=== PATIENT | female | born 2000 | race Caucasian/White ===

== ENCOUNTER 2019-05-26 18:18 | Emergency (ER) | payer BC, SELFPAY | END 2019-05-26 21:10 | disposition home or self-care (01) | PROVIDERS: Emergency Provider Emergency Medicine; Visit Provider Emergency Medicine | DX: R10.11 Right upper quadrant pain (principal) ==

== ENCOUNTER 2019-07-10 09:11 | Outpatient (CLI) | payer BC, SELFPAY ==
--- NOTE | 2019-07-10 09:29 | NM_ITS ---
WS: [id number] NUCLEAR MEDICINE HIDA SCAN WITH GALLBLADDER EJECTION FRACTION HISTORY: ABDOMINAL PAIN COMPARISON: Gallbladder ultrasound 05/26/2019 TECHNIQUE: The patient was intravenously injected with 7.9 mCi of TC99m Mebrofenin. Immediate imaging over the right upper quadrant was followed by 5 minute image and additional images for a total of 60 minutes. Normal uptake of radiotracer throughout the liver. Activity identified in the gallbladder at 15 minutes and well distended by 60 minutes. Activity in the proximal small bowel was seen by 15 minutes. Good washout of the radiotracer from the liver by 60 minutes. The patient then drank 8 ounces of Ensure Plus. Ejection fraction at 60 minutes was 79%. Normal GB ej ection fraction is 35-75%. Post fatty meal symptoms: None. NM/NM hepatobiliary w phar* [id number] IMPRESSION: 1. Normal HIDA scan. 2. Normal gallbladder ejection fraction.
== END 2019-07-10 09:12 | disposition home or self-care (01) ==
LOC: RAD 09:18
PROVIDERS: PCP Nurse Practitioner Family; Visit Provider Surgery
DX: R10.9 Unspecified abdominal pain (principal)
CPT/HCPCS: 78227; A9537

== ENCOUNTER → 2019-07-23 12:57 | Outpatient (BNVA) | payer BC, SELFPAY | PROVIDERS: PCP Nurse Practitioner Family; Visit Provider Nurse Practitioner Family | DX: F41.9 Anxiety disorder, unspecified (principal); R50.9 Fever, unspecified; J01.10 Acute frontal sinusitis, unspecified; J02.9 Acute pharyngitis, unspecified | CPT/HCPCS: 87804 ==

== ENCOUNTER 2020-05-15 07:20 | Outpatient (CLI) | payer BC, SELFPAY ==
--- NOTE | 2020-05-15 07:24 | US_ITS ---
WS: [id number] TRANSABDOMINAL PELVIC AND TRANSVAGINAL PELVIC ULTRASOUND HISTORY: UNSPECIFIED DYSPAREUNIA COMPARISON: None available. Uterus: 7.5 cm x 3.8 cm x 3.5 cm. Normal size anteverted. No fibroid or mass. Endometrium: 0.2 cm. Thin endometrium. No abnormality. Right ovary: 2.2 cm x 2.2 cm x 2.2 cm. Normal size and echogenicity and vascularity. No mass. Left ovary: 1.6 cm x 0.6 cm x 1.4 cm. Normal size and echogenicity. No mass. Small amount of free fluid. US/US pelvic with transvaginal IMPRESSION: Normal pelvic ultrasound.
== END 2020-05-15 07:21 | disposition home or self-care (01) ==
PROVIDERS: PCP Nurse Practitioner Family; Visit Provider Nurse Practitioner Family
DX: N94.10 Unspecified dyspareunia (principal)
CPT/HCPCS: 76830; 76856

== ENCOUNTER → 2020-07-10 10:30 | Outpatient (BNVA) | payer BC, SELFPAY | PROVIDERS: PCP Nurse Practitioner Family; Visit Provider Nurse Practitioner Women's Health | DX: N72 Inflammatory disease of cervix uteri (principal); N89.8 Other specified noninflammatory disorders of vagina; N92.1 Excessive and frequent menstruation with irregular cycle; B96.89 Other specified bacterial agents as the cause of diseases classified elsewhere; Z11.3 Encounter for screening for infections with a predominantly sexual mode of transmission | CPT/HCPCS: 87491; 87591; 87661 ==

== ENCOUNTER → 2020-08-27 10:21 | Outpatient (BNVA) | payer BC, SELFPAY | PROVIDERS: PCP Nurse Practitioner Family; Visit Provider Nurse Practitioner Family | DX: N92.6 Irregular menstruation, unspecified (principal); Z32.00 Encounter for pregnancy test, result unknown | CPT/HCPCS: 81025 ==

== ENCOUNTER → 2021-01-12 10:03 | Outpatient (BNVA) | payer BC, MEDICAID, SELFPAY | PROVIDERS: PCP Nurse Practitioner Family; Visit Provider Nurse Practitioner Family | DX: R05 Cough (principal); Z20.822 Contact with and (suspected) exposure to COVID-19 | CPT/HCPCS: 87635 ==

== ENCOUNTER 2021-03-26 21:20 | Outpatient (CLI) | payer MEDICAID, SELFPAY ==
[2021-03-26 21:30] VITALS: RESP 16
[2021-03-26 21:34] VITALS: BP 138/97; PULSE 80
[2021-03-26 21:46] VITALS: BMI 32.5
[2021-03-26 21:49] VITALS: BP 137/85; PULSE 81
[2021-03-26] MEDS: acetaminophen 500 mg Tablet 1000 MG PO (21:53)
[2021-03-26 22:00] LABS: Urine Creatinine 24 mg/dL (28-217); Urine Protein Random 5 mg/dL
[2021-03-26 22:04] VITALS: BP 133/82; PULSE 76
[2021-03-26 22:10] LABS: UPRO/UCREAT Ratio 0.21 mg/mg CR
[2021-03-26 22:12] VITALS: BP 145/89; PULSE 76
== END 2021-03-26 22:20 | disposition home or self-care (01) ==
LOC: OPOB 21:24 → OBGYN 21:24
PROVIDERS: PCP Nurse Practitioner Family; Visit Provider Family Medicine
DX: O16.9 Unspecified maternal hypertension, unspecified trimester (principal); O99.891 Other specified diseases and conditions complicating pregnancy; R51.9 Headache, unspecified; M54.2 Cervicalgia; M25.519 Pain in unspecified shoulder
CPT/HCPCS: 59025; 82570; 84156; 99211

== ENCOUNTER 2021-04-01 11:20 | Outpatient (CLI) | payer MEDICAID, SELFPAY ==
[2021-04-01] VITALS (11 sets, daily range): BP systolic 131–144; BP diastolic 86–95; PULSE 68–80; RESP 18; TEMP 36.6; BMI 32.3
[2021-04-01 12:27] LABS: Basophils % 0.2 %; Eosinophils # 0.1 10^3/uL (0.0-0.8); Eosinophils % 1.4 %; Hematocrit 37.2 % (37.0-47.0); Hemoglobin 13.1 g/dL (11.5-15.3); Lymphocytes % 24.6 %; Mean Corpuscular HGB Conc 35.2 g/dL (30.0-36.0); Mean Corpuscular Hemoglobin 33.7 pg (28.0-34.0); Mean Corpuscular Volume 95.6 fl (81-99); Mean Platelet Volume 12.3 fL (7.4-10.4); Monocytes # 0.4 10^3/uL (0.2-0.9); Monocytes % 4.9 %; Neutrophils # 5.52 10^3/uL (1.8-7.7); Neutrophils % 68.7 %; Nucleated Red Blood Cells % 0 %; Platelet Count 137 10^3/cmm (130-400); Red Blood Count 3.89 10^6/uL (4.1-5.3); Red Cell Distribution Width 13.7 % (12.1-15.1)
[2021-04-01 12:54] LABS: Alanine Aminotransferase 13 U/L (0-33); Albumin Level 3.7 g/dL (3.5-5.2); Alkaline Phosphatase 140 IU/L (35-105); Anion Gap 16.3 (5-19); Aspartate Amino Transferase 16 U/L (0-32); Blood Urea Nitrogen 7 mg/dL (6-20); Carbon Dioxide 20 mmol/L (22-29); Chloride 105 mmol/L (98-107); Globulin 1.7 g/dL (1.3-4.6); Glomerular Filtration Rate 278.2 mL/min (90-130); Glucose 63 mg/dL (65-115); Osmolality Calculated 280 mOsm/kg (285-295); Potassium 4.3 mmol/L (3.5-5.1); Sodium 137 mmol/L (136-145); Total Bilirubin 0.4 mg/dL (0.15-1.2); Total Protein 5.4 g/dL (6.6-8.7); Uric Acid 5.3 mg/dL (2.4-5.7); Urine Appearance Hazy (CLEAR); Urine Color Straw (Yellow)
[2021-04-01 12:55] LABS: Bilirubin Urine Neg (Negative); Blood Urine Neg (Negative); Glucose Urine UA Norm (Normal); Ketones Urine Negative (Negative); Leukocyte Esterase Urine Negative (Negative); Nitrate Urine Negative (Negative); Protein Urine Neg (Negative); Specific Gravity, Urine 1.005 (1.005-1.030); Urobilinogen Urine Norm (Negative); pH Urine 7 (5-7)
[2021-04-01 13:30] LABS: UPRO/UCREAT Ratio 0.13 mg/mg CR; Urine Creatinine 30 mg/dL (28-217); Urine Protein Random 4 mg/dL
[2021-04-01 13:32] LABS: Add Urine Culture? No; Bacteria Urine TRACE /hpf; RBC Urine 0-4 /hpf (0-2); Squamous Epithelial Cell Urine 25-40 /hpf (0-5); WBC Urine 0-4 /hpf (0-5)
--- NOTE | 2021-04-01 13:50 | PC.NURSE ---
PT CONCERNED EARLIER THAT CUFF MIGHT NOT BE RIGHT, THAT SHE HAS NURSE FRIENDS THAT SAY MANUAL CUFFS WERE BETTER, TOLD HER THAT THE CUFF WAS PROPER SIZE BUT JUST TO DOUBLE CHECK, BLOOD PRESSURE DONE WITH MANUAL CUFF PRIOR TO DISCHARGE, 144/92 WITH MANUAL AND 136/92 WITH OUR MACHINE.
== END 2021-04-01 13:50 | disposition home or self-care (01) ==
LOC: OPOB 11:30 → OBGYN 11:31
PROVIDERS: PCP Nurse Practitioner Family; Visit Provider Family Medicine
DX: O16.9 Unspecified maternal hypertension, unspecified trimester (principal)
CPT/HCPCS: 36415; 59025; 80053; 81001; 82570; 84156; 84550; 85025; 99211

== ENCOUNTER 2021-04-06 12:49 | Outpatient (CLI) | payer BC, MEDICAID, SELFPAY ==
[2021-04-06] VITALS (17 sets, daily range): BP systolic 121–168; BP diastolic 69–106; PULSE 71–94; RESP 18; TEMP 36–36.5; BMI 32.5
[2021-04-06 14:53] LABS: Add Urine Microscopic? NO; Charge for UA Resulting for Rev
[2021-04-06 14:57] LABS: Blood Urine Neg (Negative); Glucose Urine UA Norm (Normal); Ketones Urine Negative (Negative); Nitrate Urine Negative (Negative); Protein Urine Neg (Negative); Specific Gravity, Urine 1.015 (1.005-1.030); Urine Appearance Clear (CLEAR); Urine Color Yellow (Yellow); pH Urine 6 (5-7)
[2021-04-06 14:58] LABS: Bilirubin Urine Neg (Negative); Leukocyte Esterase Urine Negative (Negative); Urobilinogen Urine Norm (Negative)
[2021-04-06 15:26] LABS: Urine Creatinine 57 mg/dL (28-217); Urine Protein Random 6 mg/dL
[2021-04-06 15:31] LABS: UPRO/UCREAT Ratio 0.11 mg/mg CR
== END 2021-04-06 16:20 | disposition home or self-care (01) ==
LOC: OPOB 12:51 → OBGYN 12:52
PROVIDERS: PCP Nurse Practitioner Family; Visit Provider Family Medicine
DX: O16.9 Unspecified maternal hypertension, unspecified trimester (principal)
CPT/HCPCS: 59025; 81003; 82570; 84156; 99211

== ENCOUNTER 2021-04-07 19:15 | Inpatient (IN) | payer MEDICAID, SELFPAY ==
[2021-04-07] VITALS (8 sets, daily range): BP systolic 123–149; BP diastolic 74–96; PULSE 65–84; RESP 15; TEMP 36.3–36.5; BMI 32.7
[2021-04-07] MEDS: miSOPROStol 100 mcg tablet 25 MCG VAGINAL (20:30)
[2021-04-07 20:53] LABS: Basophils % 0.3 %; Eosinophils # 0.1 10^3/uL (0.0-0.8); Eosinophils % 1.3 %; Hematocrit 35.7 % (37.0-47.0); Hemoglobin 12.5 g/dL (11.5-15.3); Lymphocytes # 2.5 10^3/uL (0.8-4.8); Lymphocytes % 24.1 %; Mean Corpuscular Hemoglobin 33.4 pg (28.0-34.0); Mean Corpuscular Volume 95.5 fl (81-99); Mean Platelet Volume 12.5 fL (7.4-10.4); Monocytes # 0.6 10^3/uL (0.2-0.9); Monocytes % 5.5 %; Neutrophils # 7.04 10^3/uL (1.8-7.7); Neutrophils % 68.5 %; Nucleated Red Blood Cells % 0 %; Platelet Count 163 10^3/cmm (130-400); Red Blood Count 3.74 10^6/uL (4.1-5.3); Red Cell Distribution Width 13.3 % (12.1-15.1); White Blood Count 10.3 10^3/uL (4.0-10.0)
[2021-04-07] MEDS: morphine 4 mg/mL SDV 1 mL 8 MG IM (23:12)
[2021-04-07] MEDS: promethazine 25 mg/mL SDV 1 mL IM (23:13)
[2021-04-08] VITALS (63 sets, daily range): BP systolic 121–177; BP diastolic 66–105; PULSE 55–111; RESP 16–20; TEMP 36.6–37.5; O2SAT 95–100
[2021-04-08] MEDS: miSOPROStol 100 mcg tablet 25 MCG VAGINAL ×2 (00:39→04:50)
--- NOTE | 2021-04-08 07:09 | PM.OPHPUD ---
Labor & Delivery H&P Update Date of Procedure: April 08, 2021 Date H&P Performed: 04/07/21 H&P update information: I have reviewed H&P completed within last 30 days, I have examined patient prior to procedure, No changes to prior documentation and H&P to be scanned into chart Admission Diagnosis: 38-week 1 female with gestational hypertension presenting for induction Preop diagnosis: Same as admission diagnosis Planned procedure: Anticipate spontaneous vaginal delivery Related Problem List Diagnoses (1) 38 weeks gestation of : (2) Gestational hypertension:
[2021-04-08] MEDS: lactated ringers 1,000 ML 999 ML IV (11:10)
[2021-04-08] MEDS: fentaNYL 50 mcg/mL INJ 2mL IVP (11:50)
[2021-04-08] MEDS: dextrose 5%-lactated ringers 1,000 ML 999 ML IV (12:20)
--- NOTE | 2021-04-08 13:17 | P.ANESASSM_ITS ---
Pre-Anesthetic Assessment Pre-Anesthetic Assessment: Height/Weight: Height 1.57 m Weight 81.193 kg Temp Pulse Resp BP Pulse Ox 98.6 F 87 20 H 140/85 100 04/08/21 11:20 04/08/21 13:15 04/08/21 11:50 04/08/21 13:15 04/08/21 13:11 Preop Diagnosis: Same as admission diagnosis Was Beta Nazario taken within 24 hours: N/A Was Clonidine taken within 24 hours: N/A Exam: Pre-Anes Outpt Exam: alert, oriented x 3, clear to auscultation bilaterally and regular rate & rhythm Airway: Submandibular: WNL Cervical ROM: WNL MP: 2 History/ROS: No significant complaints Anesthetic Plan: ASA status: 2 Anesthesia: Anesthesia Evaluation and Regional (specify below) Other: Labor epidural Risk of > 500 ml blood loss (7ml/kg in children): No Meds/Allergies Current Medications: Current Medications Generic Name Dose Route Start Last Admin Trade Name Freq PRN Reason Stop Dose Admin Fentanyl 25 - 100 mcg 04/07/21 19:54 04/08/21 11:50 Fentanyl 50 Mcg/ Ml Inj 2ml IVP 25 mcg Q1H PRN Administration SEVERE PAIN Dextrose/Lactated Ringer's 1,000 mls @ 125 m ls/hr 04/07/21 19:54 04/08/21 12:20 Dextrose 5%-Lact ated Ringers IV 999 mls/hr .Q8H PRN Administration per label comment s Lactated Ringer's 1,000 mls @ 999 m ls/hr 04/08/21 10:02 04/08/21 12:20 Lactated Ringers IV Infused .Q1H1M PRN Infusion See label comment s PFSH Anesthesia PFSH: Medical History Anxiety Depression No pertinent past medical history neghx: htn,dm,thyroid,dvt/pe PCP: [facility] Surgical History No pertinent past surgical history Family History Grandfather Hypercholesteremia Maternal Diabetes Maternal Mother Hypertension Grandmother Thyroid disease Maternal Denies family history of Colon cancer Ovarian cancer Heart disease Breast cancer Uterine cancer Stroke Female Reproductive History: : 1 Data Anesthesia CBC & Chem 7: 04/07/21 20:20 Other Labs: Laboratory Results - last 48 hr 04/07/21 20:20 WBC 10.3 H RBC 3.74 L Hgb 12.5 Hct 35.7 L MCV 95.5 MCH 33.4 MCHC 35.0 RDW 13.3 Plt Count 163 MPV 12.5 H Neut % (Auto) 68.5 Lymph % (Auto) 24.1 [place] % (Auto) 5.5 Eos % (Auto) 1.3 Baso % (Auto) 0.3 Neut # (Auto) 7.04 Lymph # (Auto) 2.5 [place] # (Auto) 0.6 Eos # (Auto) 0.1 Baso # (Auto) 0.0 Nucleated RBC % (auto) 0 Nucleated RBCs # 0.0 Cardiac Studies: No Data to Display
--- NOTE | 2021-04-08 13:18 | ANES.PROC ---
Anesthesia Procedures Procedure/Date: 04/08/21 Epidural: Time Out Performed: Yes Consents Signed: Procedure Consent Consent: requested by attending/covering physician, from patient, risks and benefits reviewed and patient agrees to proceed Lumbar Level: L3-L4 Epidural position: sitting Epidural procedure: sterile prep of area, 1% lidocaine to numb the area, 18 g needle, neg for paresthesia, test dose given, 1.5% xylocaine 1:200k epi, 0.2% Ropivacaine bolus ml, placed PCEA, no systemic response, sterile dressing applied and 0.2% Ropiavacaine @ mls/hr Additional Comments: LORTF @ 5 cm, catheter advanced easily, secured @ 11 cm. 200 mcg Fentanyl added to 100 mL Ropivacaine infusion bag = 2 mcg/mL Fentanyl.
[2021-04-08] MEDS: dextrose 5%-lactated ringers 1,000 ML 125 ML IV (18:13)
--- NOTE | 2021-04-08 19:13 | PM.DELIVERY ---
Delivery Note: Date of delivery: April 08, 2021 Pre-delivery diagnoses: 20-year-old 1 at 38 weeks estimated gestational age with gestational hypertension Post-delivery diagnoses: Status post spontaneous vaginal delivery. Procedure: Spontaneous vaginal delivery Op report anesthesia: Epidural Delivering Physician: Roldan Hunter Estimated blood loss (mL): 150 Pre-Delivery Course: The patient had had multiple blood pressures which had been elevated intermittently with blood pressures that were within normal limits. Because it was a recurrent pattern, I elected to induce the patient. She had no other signs or symptoms of preeclampsia. Her preeclamptic panel was within normal limits. The patient presented to the hospital the night prior to delivery. She was placed on Cytotec 25 mcg per vagina x3. An amniotomy was performed. An epidural was placed. She then progressed to complete without difficulty. She was allowed to labor down for about 2 hours. Her had been relatively unremarkable. Her blood type is a positive. Her antibody screen is negative. She was GBS negative. Her glucose screen was negative. The remainder of her labs were within normal limits. Delivery: DELIVERY: The patient progressed to complete without difficulty. She delivered a male with a weight of 7 pounds 12 ounces with Apgars of 4, 9. The baby was delivered from the COSME position and placed on the mother's abdomen. The cord was then clamped and cut immediately since the baby appeared to be stunned.. There was a nuchal cord x1 which the baby was delivered through because it could not be reduced over his head.. There was no meconium until after the delivery. The placenta and 3 vessel cord were delivered intact shortly thereafter. The perineum and vaginal vault were carefully examined. A first-degree posterior and anterior midline laceration were noted which were not bleeding.. Both the mother and the baby were in stable condition. Post-Delivery Status: Good History History History 0 Term Miscarriages/Ectopic Living Children A&P Assessment and plan (1) 38 weeks gestation of : Status: Acute (2) Gestational hypertension: Status: Acute Coding Level of Care Code Acute Pattern Room Attendant for Chg Fwd Diagnoses 38 weeks gestation of Z3A.38 Gestational hypertension O13.9
[2021-04-08] MEDS: ibuprofen 800 mg tablet PO (20:48)
[2021-04-09] VITALS (7 sets, daily range): BP systolic 124–145; BP diastolic 71–90; PULSE 65–74; RESP 16; TEMP 36.7
[2021-04-09] MEDS: docusate sodium 100 mg Capsule PO ×2 (08:15→19:26)
[2021-04-09] MEDS: prenatal vitamin Capsule 1 CAP PO (08:15)
[2021-04-09] MEDS: ibuprofen 800 mg tablet PO ×3 (08:16→21:11)
[2021-04-09 09:43] LABS: Hematocrit 34.2 % (37.0-47.0); Hemoglobin 11.9 g/dL (11.5-15.3); Mean Corpuscular HGB Conc 34.8 g/dL (30.0-36.0); Mean Corpuscular Hemoglobin 33.5 pg (28.0-34.0); Mean Corpuscular Volume 96.3 fl (81-99); Platelet Count 129 10^3/cmm (130-400); Red Blood Count 3.55 10^6/uL (4.1-5.3); Red Cell Distribution Width 13.2 % (12.1-15.1); White Blood Count 13.5 10^3/uL (4.0-10.0)
--- NOTE | 2021-04-09 17:52 | P.DS_ITS ---
Discharge Providers ENROLLMENT NURSE Date of Admission: 04/07/21 19:15 Date of Discharge: 04/09/21 Attending Provider at Admission: Roldan Hunter MD Attending Provider at Discharge: Roldan Hunter MD Primary Care Provider: BALDEMAR Garcia Diagnoses at Discharge Discharge Diagnosis (1) 38 weeks gestation of : Status: Acute (2) Gestational hypertension: Status: Acute Reason for Visit Reason for Visit: Induction Hospital Course Hospital Course The patient presented to the estimated gestational age due to gestational hypertension. She was placed on Cytotec x3. An amniotomy was performed. An epidural was placed. She progressed to complete and had an unremarkable delivery of a healthy appearing infant. She had minor lacerations. Her course was unremarkable. Her bleeding was within normal limits. Her pain was well controlled. She had some challenges with breast-feeding, and is currently still on the fence as to whether she will breast-feed or not. Otherwise her hospital stay was unremarkable. Information Peripartum Data: Infant Delivery Method: Vaginal Physical Exam Narrative: EXAM NARRATIVE: The patient is alert. She appears comfortable. Her heart has a regular rate and rhythm with no murmurs appreciated. Lungs are clear to auscultation bilaterally. Her fundus is firm and below the umbilicus. Urinary Catheter Management^: [place]: Cath Placed During This Visit: yes Urinary Catheter Date of Insertion: 04/08/21 Urinary Catheter Time of Insertion: 13:15 History History History 0 Term Miscarriages/Ectopic Living Children Discharge Data Data Completed and Pending: Labs from last 24 hours 04/09/21 09:28 WBC 13.5 H RBC 3.55 L Hgb 11.9 Hct 34.2 L MCV 96.3 MCH 33.5 MCHC 34.8 RDW 13.2 Plt Count 129 L MPV 12.0 H Vitals: Last Vital Signs Temp 98.1 F 04/08/21 18:43 Pulse 74 04/09/21 12:29 Resp 16 04/08/21 20:05 BP 124/71 04/09/21 12:29 Pulse Ox 100 04/08/21 13:21 Discharge Plan Discharge Patient Disposition: Home Condition: Stable Prescriptions: New ibuprofen 800 mg Tablet 800 mg PO TID Qty: 45 RF: 0 Continued Classic 28 mg iron- 800 mcg tablet 1 tab PO DAILY Qty: 90 RF: 1 cetirizine 5 mg Tablet 5 mg PO PRN RF: 0 calcium phos,dibas-vitamin D3 77-400 mg-unit Tablet 1 tab PO DAILY RF: 0 Discontinued Vitamin C 25 mg Tablet 25 mg PO PRN RF: 0 Discharge Orders: Discharge Order (Routine); Ordered 04/09/21 Ordered By: Roldan Hunter Referrals: Roldan Hunter MD [Physician] - 6 Weeks Discharge Diet: Usual diet Discharge Activity: Limit activity as instructed Patient Instructions: Depression (DC), Expression, Collection and Storage of Breast Milk (DC), Bleeding (DC), Preeclampsia and Eclampsia After Delivery (GEN), OB Discharge Report, OB Food/Drug Interaction Guide, Opioid Safety, OB Home Care, OB Vaginal Deliveries - [facility] Discharge Attestations ENROLLMENT NURSE Time Spent in Discharge Care*: less than 30 min Coding Level of Care Code Acute Robotype Operator for Chg Fwd Diagnoses 38 weeks gestation of Z3A.38 Gestational hypertension O13.9
[2021-04-09] MEDS: benzocaine-menthol 78 gm Canister 1 SPRAY TOPICAL (19:28)
--- NOTE | 2021-04-12 10:30 | ANE.PACU2 ---
Inpatient post-anesthesia follow up: Airway intact: Yes Vital signs: Temperature 98.1 F Pulse Rate 65 Respiratory Rate 16 Blood Pressure 145/85 Pulse Oximetry 100 Oxygen Delivery Me thod Room Air Oxygen Flow Rate Fraction of Inspir ed Oxygen Hydration adequate: Yes Nausea and vomiting: No Pain level: 2 Mental status: Baseline
== END 2021-04-09 21:48 | disposition home or self-care (01) | DRG 807 ==
LOC: OPOB 19:16 → OBGYN 19:16
PROVIDERS: Admitting Provider Family Medicine; PCP Nurse Practitioner Family; Visit Provider Family Medicine
DX: O13.4 Gestational [pregnancy-induced] hypertension without significant proteinuria, complicating childbirth (principal); Z37.0 Single live birth; Z3A.38 38 weeks gestation of pregnancy; O69.2XX0 Labor and delivery complicated by other cord entanglement, with compression, not applicable or unspecified
CPT/HCPCS: 12345; 36415; 51702; 59409; 85025; 85027; 96372; 98960; J2270; J2550; J2795; J3010

== ENCOUNTER → 2021-04-19 09:47 | Outpatient (BNVA) | payer MEDICAID, SELFPAY | PROVIDERS: PCP Nurse Practitioner Family; Visit Provider Nurse Practitioner Family | DX: Z01.84 Encounter for antibody response examination (principal) | CPT/HCPCS: 86580; 86787 ==

== ENCOUNTER → 2022-11-09 09:53 | Outpatient (BNVA) | payer MEDICAID, SELFPAY | PROVIDERS: PCP Nurse Practitioner Family; Visit Provider Nurse Practitioner Family | DX: Z77.21 Contact with and (suspected) exposure to potentially hazardous body fluids (principal) | CPT/HCPCS: 81025; 82977; 83615; 84450; 84460; 85025; 86803; 87340; 87806 ==

== ENCOUNTER → 2023-04-28 10:13 | Outpatient (BNVA) | payer MEDICAID, SELFPAY | PROVIDERS: PCP Nurse Practitioner Family; Visit Provider Nurse Practitioner Family | DX: N92.1 Excessive and frequent menstruation with irregular cycle (principal); Z30.41 Encounter for surveillance of contraceptive pills | CPT/HCPCS: 84439; 84443; 84481; 85025 ==

== ENCOUNTER → 2023-05-05 10:50 | Outpatient (BNVA) | payer MEDICAID, SELFPAY | PROVIDERS: PCP Nurse Practitioner Family; Visit Provider Nurse Practitioner Family | DX: N92.1 Excessive and frequent menstruation with irregular cycle (principal); Z01.419 Encounter for gynecological examination (general) (routine) without abnormal findings; Z12.4 Encounter for screening for malignant neoplasm of cervix | CPT/HCPCS: 87070; 87205; 88175 ==

== ENCOUNTER 2023-05-24 07:49 | Outpatient (CLI) | payer MEDICAID, SELFPAY ==
--- NOTE | 2023-05-24 08:00 | USR_ITS ---
PROCEDURE INFORMATION: Exam: US Nonobstetric Pelvis; Complete Exam date and time: 05/24/2023 7:58 AM Age: 22 years old Clinical indication: Pelvic pain; Additional info: N92.1 - excessive and frequent menstruation with irregula. . . TECHNIQUE: Imaging protocol: Transabdominal pelvic nonobstetric ultrasound. Complete exam. Real time ultrasound with image documentation. COMPARISON: US pelv w/transvag [id number] 05/15/2020 7:30 AM FINDINGS: Uterus: Uterus is normal. Endometrial stripe is normal. Right ovary/adnexa: Ovary is normal. No mass. Normal blood flow. Left ovary/adnexa: Ovary is normal. No mass. Normal blood flow. Intraperitoneal space: No intraperitoneal fluid. Urinary bladder: Normal. US/US pelv w/transvag [id number] IMPRESSION: The findings are normal.
== END 2023-05-24 07:50 | disposition home or self-care (01) ==
PROVIDERS: PCP Nurse Practitioner Family; Visit Provider Nurse Practitioner Family
DX: N92.1 Excessive and frequent menstruation with irregular cycle (principal)
CPT/HCPCS: 76830; 76856

== ENCOUNTER → 2024-11-15 16:53 | Outpatient (BNVA) | payer OTHER, SELFPAY | PROVIDERS: PCP Nurse Practitioner Family; Visit Provider Registered Nurse | DX: B37.9 Candidiasis, unspecified (principal) | CPT/HCPCS: 81000 ==

== ENCOUNTER → 2024-12-10 16:09 | Outpatient (BNVA) | payer OTHER, SELFPAY | PROVIDERS: PCP Nurse Practitioner Family; Visit Provider Nurse Practitioner Family | DX: N39.0 Urinary tract infection, site not specified (principal); R53.83 Other fatigue | CPT/HCPCS: 80053; 81000; 85025 ==

== ENCOUNTER → 2024-12-16 08:29 | Outpatient (BNVA) | payer OTHER, SELFPAY | PROVIDERS: PCP Nurse Practitioner Family; Visit Provider Nurse Practitioner Family | DX: R53.83 Other fatigue (principal) | CPT/HCPCS: 85025 ==